=== PATIENT | male | born 1945 | race Two or more races ===

== ENCOUNTER 2020-02-10 07:30 | Day surgery (SDC) | payer OTHER ==
[~2020-02-10 07:30] MED LIST: GLYPIZDE PO; HYDRODIURIL12.5 MG PO; LOSARTAN-HCTZ1 EAC1 PO; NORVASC PO
[2020-02-10] MEDS ORDERED: PERCOCET 5-3251 EACH PO (12:03)
[2020-02-10] MEDS ORDERED: COLACE100 MG PO (12:03)
== END 2020-02-10 16:40 | disposition home or self-care (01) ==
LOC: CIR.AMB 07:30
PROVIDERS: ATTEND Surgery
DX: L98.8 Other specified disorders of the skin and subcutaneous tissue (principal); Z20.828 Contact with and (suspected) exposure to other viral communicable diseases